=== PATIENT | male | born 1995 | race Caucasian/White ===

== ENCOUNTER 2017-10-28 20:31 | Emergency (ER) | payer MEDICAID ==
[~2017-10-28] VITALS: Ht 180.3 cm; Wt 105.9 kg
[~2017-10-28 20:31] MED LIST: HYDR-569 PO; IBUP-1051 PO; ONDA4TAB6 PO
[2017-10-28 20:40] VITALS: BP 124/74
[2017-10-28] MEDS ORDERED: AZIT-57 PO (22:34)
[2017-10-28] MEDS ORDERED: BENZ-16 PO (22:34)
== END 2017-10-28 22:41 | disposition home or self-care (01) ==
LOC: ER 20:31
DX: R05 Cough (principal); Z98.890 Other specified postprocedural states; Z88.8 Allergy status to other drugs, medicaments and biological substances; Z79.899 Other long term (current) drug therapy
CPT/HCPCS: 71046; 99284

== ENCOUNTER 2019-06-21 12:39 | Emergency (ER) | payer SELFPAY ==
[~2019-06-21] VITALS: Ht 180.3 cm; Wt 111.0 kg
[~2019-06-21 12:39] MED LIST changes: +HYDR-4383 PO; -HYDR-569 PO
[2019-06-21 12:51] VITALS: BP 139/84
== END 2019-06-21 14:02 | disposition home or self-care (01) ==
LOC: ER 12:40
DX: S60.221A Contusion of right hand, initial encounter (principal); Z98.890 Other specified postprocedural states; Z88.5 Allergy status to narcotic agent; Z88.8 Allergy status to other drugs, medicaments and biological substances; Z79.899 Other long term (current) drug therapy; W22.8XXA Striking against or struck by other objects, initial encounter; Y93.89 Activity, other specified; Y92.89 Other specified places as the place of occurrence of the external cause; Y99.8 Other external cause status
CPT/HCPCS: 73130; 99283

== ENCOUNTER 2020-01-25 19:20 | Emergency (ER) | payer MEDICAID, OTHER ==
[~2020-01-25] VITALS: Ht 180.3 cm; Wt 113.6 kg
[2020-01-25 19:26] VITALS: BP 128/75
== END 2020-01-25 20:01 | disposition home or self-care (01) ==
LOC: ER 19:21
DX: J06.9 Acute upper respiratory infection, unspecified (principal); Z98.890 Other specified postprocedural states; Z88.8 Allergy status to other drugs, medicaments and biological substances; Z88.5 Allergy status to narcotic agent; Z79.899 Other long term (current) drug therapy
CPT/HCPCS: 99281

== ENCOUNTER 2020-04-29 15:47 | Emergency (ER) | payer OTHER ==
[~2020-04-29] VITALS: Ht 180.3 cm; Wt 113.0 kg
[2020-04-29 15:52] VITALS: BP 126/91
[2020-04-29] MEDS ORDERED: ondansetron 4mg rapidly disintigrating tab PO ONE (16:05)
[2020-04-29] MEDS ORDERED: LIDOcaine 1% W/epiNEPHrine 1:200,000 10ml vial IJ ONE (16:25)
[2020-04-29] MEDS ORDERED: LIDOcaine 1% w/epiNEPHrine 1:200,000 30ml vial IJ ONE (16:30)
== END 2020-04-29 18:13 | disposition home or self-care (01) ==
LOC: ER 15:48
DX: S61.212A Laceration without foreign body of right middle finger without damage to nail, initial encounter (principal); S61.214A Laceration without foreign body of right ring finger without damage to nail, initial encounter; Z79.899 Other long term (current) drug therapy; Z88.8 Allergy status to other drugs, medicaments and biological substances; W22.8XXA Striking against or struck by other objects, initial encounter; Y93.89 Activity, other specified; Y92.89 Other specified places as the place of occurrence of the external cause; Y99.8 Other external cause status
CPT/HCPCS: 12001; 73130; 99283

== ENCOUNTER 2020-10-12 13:42 | Emergency (ER) | payer SELFPAY | END 2020-10-12 14:37 | disposition left against medical advice (07) | LOC: ER 13:49 | DX: M54.89 Other dorsalgia (principal); Z53.21 Procedure and treatment not carried out due to patient leaving prior to being seen by health care provider ==

== ENCOUNTER 2020-10-13 09:11 | Emergency (ER) | payer OTHER ==
[~2020-10-13] VITALS: Ht 180.3 cm; Wt 113.0 kg
[2020-10-13 09:18] VITALS: BP 110/80
== END 2020-10-13 11:08 | disposition home or self-care (01) ==
LOC: ER 09:12
DX: G89.29 Other chronic pain (principal); M54.89 Other dorsalgia; R53.1 Weakness; Z98.890 Other specified postprocedural states; Z88.8 Allergy status to other drugs, medicaments and biological substances; Z79.899 Other long term (current) drug therapy
CPT/HCPCS: 99281

== ENCOUNTER 2021-01-01 22:33 | Emergency (ER) | payer OTHER ==
[~2021-01-01] VITALS: Ht 180.3 cm; Wt 115.0 kg
[2021-01-01 22:39] VITALS: BP 139/89
== END 2021-01-02 00:33 | disposition home or self-care (01) ==
LOC: ER 22:34
DX: R07.81 Pleurodynia (principal); M25.551 Pain in right hip; G89.29 Other chronic pain; M54.9 Dorsalgia, unspecified; Z88.8 Allergy status to other drugs, medicaments and biological substances; Z88.5 Allergy status to narcotic agent; Z79.899 Other long term (current) drug therapy
CPT/HCPCS: 71111; 73502; 99284

== ENCOUNTER 2021-08-18 18:39 | Emergency (ER) | payer SELFPAY ==
[~2021-08-18] VITALS: Ht 180.3 cm; Wt 118.2 kg
[2021-08-18 21:44] VITALS: BP 121/66
== END 2021-08-18 22:50 | disposition home or self-care (01) ==
LOC: ER 18:40
DX: R00.2 Palpitations (principal); R11.2 Nausea with vomiting, unspecified; F41.9 Anxiety disorder, unspecified; G89.29 Other chronic pain; Z98.890 Other specified postprocedural states; Z88.8 Allergy status to other drugs, medicaments and biological substances; Z79.899 Other long term (current) drug therapy
CPT/HCPCS: 71045; 93005; 99283

== ENCOUNTER 2022-01-29 10:04 | Emergency (ER) | payer MEDICAID ==
[~2022-01-29] VITALS: Ht 180.3 cm; Wt 122.7 kg
[2022-01-29 10:23] VITALS: BP 128/85
== END 2022-01-29 13:00 | disposition home or self-care (01) ==
LOC: ER 10:04
DX: S93.402A Sprain of unspecified ligament of left ankle, initial encounter (principal); G89.29 Other chronic pain; M54.9 Dorsalgia, unspecified; Z87.81 Personal history of (healed) traumatic fracture; Z88.8 Allergy status to other drugs, medicaments and biological substances; Z88.5 Allergy status to narcotic agent; Z79.899 Other long term (current) drug therapy; X50.0XXA Overexertion from strenuous movement or load, initial encounter; Y93.89 Activity, other specified; Y92.89 Other specified places as the place of occurrence of the external cause; Y99.8 Other external cause status
CPT/HCPCS: 29515; 73610; 73630; 99284; L1930

== ENCOUNTER 2022-10-22 09:21 | Emergency (ER) | payer MEDICAID ==
[~2022-10-22] VITALS: Ht 180.3 cm; Wt 118.2 kg
[2022-10-22 11:16] LABS: BASOPHILS % (AUTO) 0.4 % (0-1); EOSINOPHILS # (AUTO) 0.1 X10'3 (0-0.9); EOSINOPHILS % (AUTO) 1.6 % (0-6); HEMATOCRIT 45.2 % (42.0-52.0); HEMOGLOBIN 15.2 g/dl (14.0-17.9); LYMPHOCYTES # (AUTO) 2.1 X10'3 (1.1-4.8); LYMPHOCYTES % (AUTO) 28.6 % (21-51); MEAN CORPUSCULAR HEMOGLOBIN 28.9 PG (27.0-31.0); MEAN CORPUSCULAR HGB CONC 33.6 g/dL (33.0-36.5); MEAN PLATELET VOLUME 6.6 FL (7.4-10.4); MONOCYTES # (AUTO) 0.7 X10'3 (0-0.9); MONOCYTES % (AUTO) 8.9 % (2-12); NEUTROPHILS # (AUTO) 4.5 X10'3 (1.8-7.7); NEUTROPHILS % (AUTO) 60.5 % (42-75); PLATELET COUNT 334 X10'3 (140-440); RED BLOOD COUNT 5.25 X10'6 (4.70-6.10); RED CELL DISTRIBUTION WIDTH 13.5 % (11.5-14.5); WHITE BLOOD COUNT 7.4 X10'3 (4.5-11.0)
[2022-10-22 11:27] LABS: ALANINE AMINOTRANSFERASE 41 U/L (12-78); ALBUMIN 3.5 G/DL (3.4-5.0); ALBUMIN/GLOBULIN RATIO 0.9 (1.1-1.5); ALKALINE PHOSPHATASE 75 IU/L (46-116); ANION GAP 7 (8-16); ASPARTATE AMINO TRANSFERASE 21 U/L (10-37); BILIRUBIN,TOTAL 0.3 MG/DL (0.1-1.0); BLOOD UREA NITROGEN 13 MG/DL (7-18); BUN/CREATININE RATIO 16.5 (10.0-20.0); CALCIUM 8.9 MG/DL (8.5-10.1); CHLORIDE 105 MMOL/L (99-107); CREATININE 0.79 MG/DL (0.60-1.10); GLUCOSE 102 MG/DL (70-104); LIPASE < 50 U/L (73-393); POTASSIUM 3.9 MMOL/L (3.5-5.1); SODIUM 139 MMOL/L (135-145); TOTAL CARBON DIOXIDE 27.2 MMOL/L (24-32); TOTAL PROTEIN 7.6 G/DL (6.4-8.2); eGFR > 90 ML/MIN
[2022-10-22 12:46] VITALS: BP 128/93
[2022-10-22] MEDS ORDERED: PANT-47 PO (14:38)
[2022-10-22] MEDS ORDERED: FAMO-128 PO (14:38)
== END 2022-10-22 14:50 | disposition home or self-care (01) ==
LOC: ER 09:21
DX: K29.00 Acute gastritis without bleeding (principal); G89.29 Other chronic pain; M54.9 Dorsalgia, unspecified; Z87.81 Personal history of (healed) traumatic fracture; Z88.6 Allergy status to analgesic agent; Z88.5 Allergy status to narcotic agent; Z79.899 Other long term (current) drug therapy
CPT/HCPCS: 36415; 80053; 83690; 85025; 99283

== ENCOUNTER 2022-11-15 08:52 | Emergency (ER) | payer MEDICAID ==
[~2022-11-15] VITALS: Ht 180.3 cm; Wt 118.2 kg
[~2022-11-15 08:52] MED LIST changes: +FAMO-128 PO; +PANT-47 PO
[2022-11-15 10:20] LABS: BASOPHILS # (AUTO) 0.1 X10'3 (0-0.2); BASOPHILS % (AUTO) 0.8 % (0-1); EOSINOPHILS # (AUTO) 0.2 X10'3 (0-0.9); HEMATOCRIT 45.3 % (42.0-52.0); HEMOGLOBIN 15.6 g/dl (14.0-17.9); LYMPHOCYTES # (AUTO) 2.2 X10'3 (1.1-4.8); LYMPHOCYTES % (AUTO) 30.9 % (21-51); MEAN CORPUSCULAR HEMOGLOBIN 29.6 PG (27.0-31.0); MEAN CORPUSCULAR HGB CONC 34.4 g/dL (33.0-36.5); MEAN PLATELET VOLUME 6.3 FL (7.4-10.4); MONOCYTES # (AUTO) 0.7 X10'3 (0-0.9); MONOCYTES % (AUTO) 9.5 % (2-12); NEUTROPHILS # (AUTO) 3.9 X10'3 (1.8-7.7); NEUTROPHILS % (AUTO) 55.8 % (42-75); PLATELET COUNT 324 X10'3 (140-440); RED BLOOD COUNT 5.26 X10'6 (4.70-6.10); RED CELL DISTRIBUTION WIDTH 13.5 % (11.5-14.5)
[2022-11-15 10:44] LABS: ALANINE AMINOTRANSFERASE 49 U/L (12-78); ALBUMIN 3.7 G/DL (3.4-5.0); ALKALINE PHOSPHATASE 74 IU/L (46-116); ANION GAP 7 (8-16); ASPARTATE AMINO TRANSFERASE 29 U/L (10-37); BILIRUBIN,TOTAL 0.4 MG/DL (0.1-1.0); BLOOD UREA NITROGEN 13 MG/DL (7-18); BUN/CREATININE RATIO 14.9 (10.0-20.0); CALCIUM 8.8 MG/DL (8.5-10.1); CHLORIDE 103 MMOL/L (99-107); CREATININE 0.87 MG/DL (0.60-1.10); GLUCOSE 99 MG/DL (70-104); MAGNESIUM 1.9 MG/DL (1.5-2.4); POTASSIUM 4.2 MMOL/L (3.5-5.1); SODIUM 139 MMOL/L (135-145); TOTAL CARBON DIOXIDE 29.2 MMOL/L (24-32); TOTAL PROTEIN 7.5 G/DL (6.4-8.2); eGFR > 90 ML/MIN
[2022-11-15 10:46] LABS: CLARITY,URINE SLIGHTLY CLOUDY (Clear); COLOR,URINE YELLOW (Yellow); GLUCOSE, URINE NEGATIVE (Neg); KETONES,URINE NEGATIVE (Neg); LEUKOCYTE ESTERASE ,URINE NEGATIVE (Neg); NITRITES, URINE NEGATIVE (Neg); OCCULT BLOOD,URINE NEGATIVE (Neg); PH,URINE 7.5 (4.8-8.0); PROTEIN,URINE NEGATIVE (Neg); UROBILINOGEN,URINE 0.2 E.U/dL (0.2-1.0)
[2022-11-15 10:47] LABS: ETHANOL < 0.010 GM/DL (0.0-0.010)
[2022-11-15 10:49] LABS: UA COLLECTION TYPE CLN CATCH MIDSTREAM
[2022-11-15 10:52] LABS: AMORPHOUS PHOSPHATES 1+
[2022-11-15 10:53] LABS: BACTERIA,URINE NONE SEEN /HPF (Neg); RBC,URINE NONE SEEN /HPF (0-2); SQUAMOUS EPITHELIAL CELL,UR NONE SEEN /LPF (FEW); WBC,URINE NONE SEEN /HPF (0-4)
[2022-11-15 11:01] LABS: URINE AMPHETAMINE SCREEN NEGATIVE (Neg); URINE BARBITUATE SCREEN NEGATIVE (Neg); URINE BENZODIAZEPINES SCREEN NEGATIVE (Neg); URINE CANNABINOID SCREEN POSITIVE (Neg); URINE COCAINE SCREEN NEGATIVE (Neg); URINE METHADONE SCREEN NEGATIVE (Neg); URINE OPIATE SCREEN NEGATIVE (Neg); URINE PHENCYCLIDINE SCREEN NEGATIVE (Neg)
[2022-11-15] MEDS ORDERED: normal saline 1000ml 1,000 ML IV ONE (11:20)
[2022-11-15 13:03] VITALS: BP 114/60
== END 2022-11-15 12:55 | disposition home or self-care (01) ==
LOC: ER 08:52
DX: R55 Syncope and collapse (principal); Z88.8 Allergy status to other drugs, medicaments and biological substances; Z88.5 Allergy status to narcotic agent
CPT/HCPCS: 36415; 80053; 80305; 80320; 81001; 83735; 84443; 84484; 85025; 93005; 96360; 99284; J7030

== ENCOUNTER 2023-01-09 14:56 | Emergency (ER) | payer MEDICAID ==
[~2023-01-09] VITALS: Ht 180.3 cm; Wt 130.0 kg
[2023-01-09 15:16] VITALS: BP 154/84
[2023-01-09] MEDS ORDERED: LIDO-12 TOP (15:59)
[2023-01-09] MEDS ORDERED: IBUP-1986 PO (15:59)
[2023-01-09] MEDS ORDERED: CYCL-1 PO (15:59)
[2023-01-09] MEDS ORDERED: orphenadrine citrate 60mg/2ml inj. IM ONE (16:00)
[2023-01-09] MEDS ORDERED: LIDOcaine 5% patch TP STA (16:00)
[2023-01-09] MEDS ORDERED: ketorolac trometh inj. 60 MG/2 ML VIAL IM ONE (16:00)
[2023-01-09] MEDS ORDERED: cyclobenzaprine 10mg tablet PO STA (16:25)
== END 2023-01-09 16:37 | disposition home or self-care (01) ==
LOC: ER 14:56
DX: S39.012A Strain of muscle, fascia and tendon of lower back, initial encounter (principal); R33.9 Retention of urine, unspecified; R15.9 Full incontinence of feces; G89.29 Other chronic pain; Z87.81 Personal history of (healed) traumatic fracture; Z88.8 Allergy status to other drugs, medicaments and biological substances; Z79.899 Other long term (current) drug therapy; X50.0XXA Overexertion from strenuous movement or load, initial encounter; Y93.89 Activity, other specified; Y92.89 Other specified places as the place of occurrence of the external cause; Y99.8 Other external cause status
CPT/HCPCS: 96372; 99283; J1885

== ENCOUNTER 2023-04-24 08:21 | Emergency (ER) | payer MEDICAID ==
[~2023-04-24] VITALS: Ht 180.3 cm; Wt 125.0 kg
[~2023-04-24 08:21] MED LIST changes: +CYCL-1 PO; +IBUP-1986 PO; +LIDO-12 TOP
[2023-04-24 08:45] VITALS: BP 137/89; PULSE 98; RESP 19; O2SAT 96
[2023-04-24] MEDS ORDERED: dexamethasone sod phosphate 10mg/ml inj IM STA (09:23)
[2023-04-24] MEDS ORDERED: AMOX-117 PO (09:27)
[2023-04-24 09:40] VITALS: TEMP 97.8
== END 2023-04-24 09:42 | disposition home or self-care (01) ==
LOC: ER 08:21
DX: J01.90 Acute sinusitis, unspecified (principal); G89.29 Other chronic pain; M54.9 Dorsalgia, unspecified; Z88.8 Allergy status to other drugs, medicaments and biological substances; Z88.5 Allergy status to narcotic agent; Z79.899 Other long term (current) drug therapy
CPT/HCPCS: 96372; 99283; J1100

== ENCOUNTER 2023-12-28 23:17 | Emergency (ER) | payer MEDICAID ==
[~2023-12-28] VITALS: Ht 180.3 cm; Wt 122.7 kg
[~2023-12-28 23:17] MED LIST changes: -LIDO-12 TOP; +LIDO-6 TOP
[2023-12-28 23:19] VITALS: TEMP 98.7
[2023-12-29 02:55] VITALS: BP 144/77; PULSE 88; RESP 18; O2SAT 98
== END 2023-12-29 02:59 | disposition home or self-care (01) ==
LOC: ER 23:18
DX: M25.512 Pain in left shoulder (principal); Z88.5 Allergy status to narcotic agent; Z88.8 Allergy status to other drugs, medicaments and biological substances; Z79.1 Long term (current) use of non-steroidal anti-inflammatories (NSAID); Z79.899 Other long term (current) drug therapy
CPT/HCPCS: 73030; 99283

== ENCOUNTER 2024-07-11 23:06 | Emergency (ER) | payer MEDICAID ==
[~2024-07-11] VITALS: Ht 180.3 cm; Wt 125.3 kg
[2024-07-11 23:08] VITALS: O2SAT 96
[2024-07-11 23:29] LABS: BILIRUBIN,URINE NEGATIVE (Neg); CLARITY,URINE CLEAR (Clear); COLOR,URINE YELLOW (Yellow); GLUCOSE, URINE NEGATIVE (Neg); KETONES,URINE TRACE mg/dl (Neg); LEUKOCYTE ESTERASE ,URINE NEGATIVE (Neg); NITRITES, URINE NEGATIVE (Neg); OCCULT BLOOD,URINE SMALL (Neg); PROTEIN,URINE NEGATIVE (Neg); UROBILINOGEN,URINE 0.2 E.U/dL (0.2-1.0)
[2024-07-11 23:34] LABS: UA COLLECTION TYPE CLN CATCH MIDSTREAM
[2024-07-11 23:35] LABS: BACTERIA,URINE NONE SEEN /HPF (Neg); SQUAMOUS EPITHELIAL CELL,UR NONE SEEN /LPF (FEW); WBC,URINE NONE SEEN /HPF (0-4)
[2024-07-11 23:46] LABS: BASOPHILS # (AUTO) 0.1 X10'3 (0-0.2); BASOPHILS % (AUTO) 0.8 % (0-1); EOSINOPHILS # (AUTO) 0.2 X10'3 (0-0.9); EOSINOPHILS % (AUTO) 1.3 % (0-6); HEMATOCRIT 47.2 % (42.0-52.0); HEMOGLOBIN 16.1 g/dl (14.0-17.9); LYMPHOCYTES # (AUTO) 3.3 X10'3 (1.1-4.8); LYMPHOCYTES % (AUTO) 26.6 % (21-51); MEAN CORPUSCULAR HEMOGLOBIN 29.2 PG (27.0-31.0); MEAN CORPUSCULAR HGB CONC 34.2 g/dL (33.0-36.5); MEAN CORPUSCULAR VOLUME 85.5 FL (78-98); MEAN PLATELET VOLUME 6.4 FL (7.4-10.4); MONOCYTES # (AUTO) 0.9 X10'3 (0-0.9); MONOCYTES % (AUTO) 7.4 % (2-12); NEUTROPHILS # (AUTO) 7.9 X10'3 (1.8-7.7); NEUTROPHILS % (AUTO) 63.9 % (42-75); PLATELET COUNT 384 X10'3 (140-440); RED BLOOD COUNT 5.52 X10'6 (4.70-6.10); RED CELL DISTRIBUTION WIDTH 13.4 % (11.5-14.5); WHITE BLOOD COUNT 12.3 X10'3 (4.5-11.0)
[2024-07-12 00:01] LABS: ALANINE AMINOTRANSFERASE 62 U/L (12-78); ALBUMIN 3.8 G/DL (3.4-5.0); ALBUMIN/GLOBULIN RATIO 0.9 (1.1-1.5); ALKALINE PHOSPHATASE 90 IU/L (46-116); ANION GAP 8 (8-16); ASPARTATE AMINO TRANSFERASE 29 U/L (10-37); BILIRUBIN,TOTAL 0.6 MG/DL (0.1-1.0); BLOOD UREA NITROGEN 8 MG/DL (7-18); BUN/CREATININE RATIO 8.6 (10.0-20.0); CALCIUM 9.4 MG/DL (8.5-10.1); CHLORIDE 102 MMOL/L (99-107); CREATININE 0.93 MG/DL (0.60-1.10); GLUCOSE 86 MG/DL (70-104); LIPASE 17 U/L (16-77); POTASSIUM 3.6 MMOL/L (3.5-5.1); SODIUM 138 MMOL/L (135-145); TOTAL CARBON DIOXIDE 28.2 MMOL/L (24-32); TOTAL PROTEIN 8.1 G/DL (6.4-8.2); eCRCL 127 ML/MIN; eGFR > 90 ML/MIN
[2024-07-12 00:17] VITALS: PULSE 92
[2024-07-12] MEDS ORDERED: OMEP40CA21 PO (02:24)
[2024-07-12 02:27] VITALS: BP 126/81; RESP 16; TEMP 98
== END 2024-07-12 02:31 | disposition home or self-care (01) ==
LOC: ER 23:07
DX: R10.12 Left upper quadrant pain (principal); R10.13 Epigastric pain; Z91.013 Allergy to seafood; Z88.5 Allergy status to narcotic agent; Z88.8 Allergy status to other drugs, medicaments and biological substances; Z98.890 Other specified postprocedural states
CPT/HCPCS: 36415; 74176; 80053; 81001; 83690; 85025; 99284